=== PATIENT | female | born 1940 | race Caucasian/White ===

== ENCOUNTER → 2023-04-28 08:09 | Outpatient (REF) | payer MEDICARE, BC, SELFPAY | LOC: HWWDC 08:09 | PROVIDERS: ATTENDING PHYSICIAN Nurse Practitioner Primary Care | DX: Z12.31 Encounter for screening mammogram for malignant neoplasm of breast (principal) | CPT/HCPCS: 77063; 77067 ==

== ENCOUNTER → 2023-07-30 07:40 | Outpatient (REF) | payer MEDICARE, BC, SELFPAY ==
[2023-07-30 08:48] LABS: Erythrocyte Sed Rate 10 mm/hour (0-20)
[2023-07-30 08:59] LABS: C-Reactive Protein < 5.00 mg/L (0.0-10.00)
[2023-07-30 15:08] LABS: Syphilis/T. pallidum Ab Reflex Negative (Negative)
[2023-07-30 16:06] LABS: Vitamin B12 > 1000 pg/ml (239-931)
[2023-07-31 23:01] LABS: Angiotensin-1-converting Enzym 42 U/L (16-85)
== END ==
LOC: REG 07:40
PROVIDERS: ATTENDING PHYSICIAN Psychiatry & Neurology Neurology; FAMILY PHYSICIAN Internal Medicine Geriatric Medicine
DX: G62.9 Polyneuropathy, unspecified (principal); Z79.899 Other long term (current) drug therapy
CPT/HCPCS: 36415; 82164; 82607; 83921; 85652; 86140; 86780

== ENCOUNTER → 2023-10-18 07:35 | Outpatient (REF) | payer MEDICARE, BC, SELFPAY ==
[2023-10-18 10:27] LABS: Vitamin B12 786 pg/ml (239-931)
== END ==
LOC: REG 07:35
PROVIDERS: ATTENDING PHYSICIAN Psychiatry & Neurology Neurology; FAMILY PHYSICIAN Internal Medicine Geriatric Medicine
DX: G62.9 Polyneuropathy, unspecified (principal); D51.8 Other vitamin B12 deficiency anemias
CPT/HCPCS: 36415; 82607; 84425

== ENCOUNTER → 2024-01-28 07:39 | Outpatient (REF) | payer MEDICARE, BC, SELFPAY ==
[2024-01-28 08:41] LABS: % Basophils 0.9 % (0-2); % Eosinophils 3.8 % (0-6); % Immature Granulocytes 0.2 % (0-0.5); % Lymphocytes 22.7 % (20.5-51.1); % Monocytes 6.9 % (1.7-9.3); % Neutrophils 65.5 % (42.2-75.2); Absolute Eosinophils 0.2 10^3/uL (0-0.7); Absolute Monocytes 0.3 10^3/uL (0.1-0.6); Absolute Neutrophils 2.8 10^3/uL (1.4-6.5); Hematocrit 39.4 % (37.0-47.0); Hemoglobin 12.6 g/dL (12.0-16.0); Mean Corpuscular Hgb 32.1 pg (27.0-31.0); Mean Corpuscular Volume 100.5 fL (81.0-99.0); Mean Platelet Volume 9.5 fL (7.4-10.4); Nucleated Red Blood Cells % 0 %; Platelet Count 221 10^3/uL (130-400); Red Blood Cell Count 3.92 10^6/uL (4.20-5.40); Red Cell Dist. Width 12.8 % (11.5-14.5); White Blood Cell Count 4.2 10^3/uL (4.8-10.8)
[2024-01-28 09:21] LABS: ALT (SGPT) 15 U/L (0-35); AST (SGOT) 19 U/L (14-36); Albumin 4.2 g/dl (3.5-5.0); Alkaline Phosphatase 54 U/L (38-126); Blood Urea Nitrogen 16 mg/dl (7-17); Calcium 9.3 mg/dl (8.4-10.2); Carbon Dioxide 30 mmol/L (22-30); Chloride 102 mmol/L (98-107); Glucose 104 mg/dl (70-99); HDL Cholesterol 86 mg/dl; LDL Cholesterol, Calculated 122 mg/dl; Potassium 4.1 mmol/L (3.5-5.1); Sodium 143 mmol/L (135-145); Total Bilirubin 0.6 mg/dl (0.2-1.3); Total Cholesterol 222 mg/dl (50-199); Total Protein 6.6 g/dl (6.3-8.2); Triglyceride 74 mg/dl (10-149); Very Low Density Lipoprotein 14 mg/dl (0-30); eGFR > 60.00
[2024-01-28 09:33] LABS: Vitamin D, 25-OH*** 84.9 ng/mL (30-80)
[2024-01-28 09:47] LABS: TSH Reflex To Free T4 2.22 uIU/ml (0.47-4.68)
[2024-01-28 11:46] LABS: Glycohemoglobin (HgbA1c) 5.3 % (4.0-5.6)
== END ==
LOC: REG 07:39
PROVIDERS: ATTENDING PHYSICIAN Nurse Practitioner Primary Care
DX: E78.2 Mixed hyperlipidemia (principal); R73.01 Impaired fasting glucose; E04.1 Nontoxic single thyroid nodule; E55.9 Vitamin D deficiency, unspecified
CPT/HCPCS: 36415; 80053; 80061; 82306; 83036; 84443; 85025

== ENCOUNTER → 2024-03-31 11:07 | Outpatient (REF) | payer MEDICARE, BC, SELFPAY | LOC: HWRAD 11:07 | PROVIDERS: ATTENDING PHYSICIAN Nurse Practitioner Primary Care | DX: M85.89 Other specified disorders of bone density and structure, multiple sites (principal) | CPT/HCPCS: 77080 ==

== ENCOUNTER → 2024-05-01 10:57 | Outpatient (REF) | payer MEDICARE, BC, SELFPAY | LOC: HWWDC 10:57 | PROVIDERS: ATTENDING PHYSICIAN Nurse Practitioner Primary Care | DX: Z12.31 Encounter for screening mammogram for malignant neoplasm of breast (principal) | CPT/HCPCS: 77063; 77067 ==

== ENCOUNTER → 2024-07-25 08:49 | Outpatient (REF) | payer MEDICARE, BC, SELFPAY ==
[2024-07-25 10:46] LABS: Iron 64 ug/dl (37-170)
[2024-07-25 11:54] LABS: Vitamin B12 373 pg/ml (239-931)
== END ==
LOC: REG 08:49
PROVIDERS: ATTENDING PHYSICIAN Nurse Practitioner; FAMILY PHYSICIAN Internal Medicine Geriatric Medicine
DX: G62.9 Polyneuropathy, unspecified (principal); E53.8 Deficiency of other specified B group vitamins; E61.1 Iron deficiency
CPT/HCPCS: 36415; 82607; 82728; 83540

== ENCOUNTER → 2025-02-08 09:22 | Outpatient (REF) | payer MEDICARE, BC, SELFPAY ==
[2025-02-08 10:26] LABS: Hematocrit 38.5 % (37.0-47.0); Hemoglobin 12.4 g/dL (12.0-16.0); Mean Corp Hgb Conc. 32.2 g/dL (33.0-37.0); Mean Corpuscular Volume 100.8 fL (81.0-99.0); Nucleated Red Blood Cells % 0 %; Platelet Count 189 10^3/uL (130-400); Red Cell Dist. Width 12.6 % (11.5-14.5)
[2025-02-08 11:07] LABS: ALT (SGPT) 14 U/L (0-35); AST (SGOT) 16 U/L (14-36); Albumin 4.3 g/dl (3.5-5.0); Alkaline Phosphatase 57 U/L (38-126); Blood Urea Nitrogen 18 mg/dl (7-17); Calcium 9.4 mg/dl (8.4-10.2); Carbon Dioxide 32 mmol/L (22-30); Chloride 101 mmol/L (98-107); Glucose 108 mg/dl (70-99); HDL Cholesterol 84 mg/dl; LDL Cholesterol, Calculated 126 mg/dl; Potassium 4.5 mmol/L (3.5-5.1); Sodium 138 mmol/L (135-145); Total Protein 6.6 g/dl (6.3-8.2); Very Low Density Lipoprotein 10 mg/dl (0-30); eGFR > 60.00
[2025-02-08 11:23] LABS: Vitamin D, 25-OH*** 64.5 ng/mL (30-80)
[2025-02-08 11:56] LABS: Vitamin B12 484 pg/ml (239-931)
== END ==
LOC: REG 09:22
PROVIDERS: ATTENDING PHYSICIAN Nurse Practitioner Primary Care
DX: E78.2 Mixed hyperlipidemia (principal); R73.01 Impaired fasting glucose; G60.9 Hereditary and idiopathic neuropathy, unspecified; E53.8 Deficiency of other specified B group vitamins; M85.89 Other specified disorders of bone density and structure, multiple sites; E04.1 Nontoxic single thyroid nodule; E55.9 Vitamin D deficiency, unspecified
CPT/HCPCS: 36415; 80053; 80061; 82306; 82607; 84443; 85025

== ENCOUNTER → 2025-02-19 08:18 | Outpatient (REF) | payer MEDICARE, BC, SELFPAY ==
[2025-02-19 09:19] LABS: Hematocrit 39.9 % (37.0-47.0); Hemoglobin 12.8 g/dL (12.0-16.0); Mean Corp Hgb Conc. 32.1 g/dL (33.0-37.0); Mean Corpuscular Volume 97.8 fL (81.0-99.0); Nucleated Red Blood Cells % 0 %; Platelet Count 250 10^3/uL (130-400); Red Cell Dist. Width 12.5 % (11.5-14.5)
[2025-02-19 09:52] LABS: Blood Urea Nitrogen 23 mg/dl (7-17); Calcium 9.8 mg/dl (8.4-10.2); Carbon Dioxide 29 mmol/L (22-30); Chloride 100 mmol/L (98-107); Glucose 112 mg/dl (70-99); Iron 105 ug/dl (37-170); Potassium 4.3 mmol/L (3.5-5.1); Sodium 137 mmol/L (135-145); eGFR 55.21
[2025-02-19 10:01] LABS: Total Iron Binding Capacity 347 ug/dl (265-497)
[2025-02-19 10:26] LABS: Ferritin 145.0 ng/ml (11.1-264.0)
[2025-02-19 10:59] LABS: Glycohemoglobin (HgbA1c) 5.5 % (4.0-5.9)
[2025-02-22 00:36] LABS: Albumin 3.91 g/dL (3.75-5.01); Free Kappa Light Chains,Quant 14.90 mg/L (3.30-19.40); Free Lambda Light Chains,Quant 12.39 mg/L (5.71-26.30); Immunofixation Electrophoresis IFE Done; Kappa/Lambda Fr Light Ratio 1.20 (0.26-1.65); Total Protein-Electrophoresis 6.3 g/dL (6.3-8.2)
== END ==
LOC: REG 08:18
PROVIDERS: ATTENDING PHYSICIAN Nurse Practitioner Primary Care
DX: R71.8 Other abnormality of red blood cells (principal); G60.9 Hereditary and idiopathic neuropathy, unspecified; R73.01 Impaired fasting glucose; I10 Essential (primary) hypertension
CPT/HCPCS: 36415; 80048; 82728; 82784; 83036; 83521; 83540; 83550; 84155; 84165; 85025; 86334